=== PATIENT | female | born 1965 | race Hispanic/Latino ===

== ENCOUNTER 2024-06-29 18:43 | Inpatient (IN) | payer OTHER ==
[~2024-06-29] VITALS: Ht 149.9 cm; Wt 69.8 kg
[2024-06-29 18:46] VITALS: TEMP 98.8
[2024-06-29] MEDS: SODIUM CHLORIDE 0.9% 1000ML 1,000 ML IV ONE ×2 (19:50)
[2024-06-29] MEDS: ONDANSETRON HCL INJ 2MG/ML 2ML 2 MG/ML VIAL IV STA (19:50)
[2024-06-29 19:51] LABS: BASOPHILS % 0.3 % (0.0-1.0); EOSINOPHILS # (AUTO) 0.2 (0.0-0.4); EOSINOPHILS % 1.6 % (0.0-6.0); HEMATOCRIT 39.3 % (34.2-44.1); HEMOGLOBIN 13.5 g/dL (12.0-16.0); LYMPHOCYTES # (AUTO) 3.1 (1.0-3.2); LYMPHOCYTES % 26.9 % (18.0-39.1); MEAN CORPUSCULAR HEMOGLOBIN 33.3 pg (28-32); MEAN CORPUSCULAR HGB CONC 34.4 g/dL (31-35); MEAN CORPUSCULAR VOLUME 96.8 fL (81-99); MONOCYTES % 8.3 % (4.4-11.3); NEUTROPHILS # (AUTO) 7.3 (2.1-6.9); NEUTROPHILS % 62.5 % (38.7-80.0); PLATELET COUNT 226 x10e3/uL (140-360); RED BLOOD COUNT 4.06 x10e6/uL (3.6-5.1); RED CELL DISTRIBUTION WIDTH 12.1 % (11.7-14.4); WHITE BLOOD COUNT 11.61 x10e3/uL (4.8-10.8)
[2024-06-29 20:04] LABS: INR 0.86; PROTHROMBIN TIME 12.3 seconds (11.9-14.5)
[2024-06-29 20:05] LABS: PARTIAL THROMBOPLASTIN TIME 28.4 seconds (23.8-35.5)
[2024-06-29 20:08] LABS: CORONAVIRUS COVID-19 AG NEGATIVE (NEGATIVE); INFLUENZA A AG NEGATIVE (NEGATIVE); INFLUENZA B AG NEGATIVE (NEGATIVE)
[2024-06-29 20:14] LABS: ALBUMIN 3.6 g/dL (3.5-5.0); ALBUMIN/GLOBULIN RATIO 0.9 (0.8-2.0); ANION GAP 32.5 mmol/L (8-16); BILIRUBIN,TOTAL 0.4 mg/dL (0.2-1.2); CALCIUM 9.3 mg/dL (8.4-10.2); CREATININE, SERUM 4.04 mg/dL (0.57-1.11); TOTAL PROTEIN 7.6 g/dL (6.5-8.1)
[2024-06-29 20:19] LABS: TROPONIN I 0.044 ng/mL (0-0.300)
[2024-06-29 20:29] LABS: POTASSIUM 2.5 mmol/L (3.5-5.1)
[2024-06-29] MEDS ORDERED: POTASSIUM CHLORIDE 20MEQ/100ML 100 ML IV STA (20:31)
[2024-06-29] MEDS: SODIUM CHLORIDE 0.9% 1000ML 1,000 ML IV SCH (20:46)
[2024-06-29] MEDS: POTASSIUM CHLORIDE 20MEQ/100ML 100 ML IV SCH (20:47)
[2024-06-29 20:58] LABS: CLARITY,URINE CLEAR (CLEAR); COLOR,URINE YELLOW (YELLOW); LEUKOCYTE ESTERASE ,URINE TRACE (NEGATIVE); PH,URINE 5.5 (5 - 7)
[2024-06-29 20:59] LABS: BILIRUBIN,URINE SMALL (NEGATIVE); GLUCOSE, URINE NEGATIVE (NEGATIVE); KETONES,URINE 1+ (NEGATIVE); NITRITE,URINE NEGATIVE (NEGATIVE); PROTEIN,URINE DIPSTICK 1+ (NEGATIVE); URINE UROBILINOGEN 0.2 mg/dL (0.2 - 1)
[2024-06-29 21:00] LABS: WBC,URINE (MAN) >50 /HPF (0-5)
[2024-06-29 21:01] LABS: BACTERIA,URINE MODERATE /HPF; EPITHELIAL CELLS,URINE MANY /LPF
[2024-06-29 21:02] LABS: HYALINE CASTS 0-1 (0-1); MUCUS,URINE FEW
[2024-06-30] VITALS (22 sets, daily range): BP systolic 84–130; BP diastolic 54–85; PULSE 84–105; RESP 6–21; TEMP 98.1–100.6; O2SAT 92–100
[2024-06-30] MEDS: DEXTROSE 50% SYRINGE 50 ML IV STA (00:20)
[2024-06-30] MEDS: ACETAMINOPHEN 1000 MG/100 ML IV STA (00:20)
[2024-06-30] MEDS: SODIUM CHLORIDE 0.9% 1000ML 1,000 ML IV ONE (00:20)
[2024-06-30] MEDS ORDERED: BENZOCAINE 20% SPR 60 ML CAN ONE (00:35)
[2024-06-30] MEDS: METOCLOPRAMIDE HCL 10 MG/2ML VIAL IV SCH (00:53)
[2024-06-30] MEDS: DEXTROSE 5%/0.45% SOD CHL 1,000 ML IV SCH (02:12)
[2024-06-30] MEDS: BENZOCAINE 20% SPR 60 ML CAN MT ONE (02:12)
[2024-06-30] MEDS ORDERED: HYDRALAZINE HCL 20 MG/ML VIAL IV PRN (02:45)
[2024-06-30] MEDS ORDERED: GUAIFENESIN/DEXTROMETHORPHAN LIQD 5 ML UDC PO PRN (02:45)
[2024-06-30] MEDS ORDERED: MELATONIN 3 MG TAB PO PRN (02:45)
[2024-06-30] MEDS ORDERED: DOCUSATE SODIUM 100 MG CAP PO PRN (02:45)
[2024-06-30] MEDS ORDERED: METFORMIN HCL1000 MG PO (03:34)
[2024-06-30] MEDS ORDERED: BUSPIRONE HCL30 MG PO (03:34)
[2024-06-30] MEDS ORDERED: GLIMEPIRIDE2 MG PO (03:34)
[2024-06-30] MEDS ORDERED: BACLOFEN20 MG PO (03:34)
[2024-06-30] MEDS ORDERED: LISINOPRIL2.5 MG PO (03:34)
[2024-06-30] MEDS ORDERED: OMEPRAZOLE40 MG PO (03:34)
[2024-06-30] MEDS ORDERED: LOVASTATIN40 MG PO (03:34)
[2024-06-30] MEDS ORDERED: LEFLUNOMIDE20 MG PO (03:34)
[2024-06-30] MEDS ORDERED: ESCITALOPRAM OX20 MG PO (03:34)
[2024-06-30] MEDS ORDERED: PREDNISONE5 MG PO (03:34)
[2024-06-30] MEDS ORDERED: TOPIRAMATE50 MG PO (03:34)
[2024-06-30] MEDS ORDERED: HYDROCODON-ACE1 EAC9 PO (03:34)
[2024-06-30] MEDS ORDERED: DANTROLENE SODI50 MG PO (03:34)
[2024-06-30] MEDS ORDERED: ROPINIROLE HCL2 MG PO (03:34)
[2024-06-30] MEDS ORDERED: GABAPENTIN600 MG PO (03:34)
[2024-06-30] MEDS ORDERED: XELJANZ XR11 MG PO (03:34)
[2024-06-30] MEDS: INSULIN REGULAR, HUMAN 100 UNIT/1 ML SQ SCH (07:30)
[2024-06-30 07:53] LABS: ANION GAP 19.5 mmol/L (8-16); CALCIUM 8.1 mg/dL (8.4-10.2); CREATININE, SERUM 2.01 mg/dL (0.57-1.11); MAGNESIUM 1.7 MG/DL (1.3-2.1); PHOSPHORUS 3.4 MG/DL (2.3-4.7)
[2024-06-30 07:56] LABS: POTASSIUM 2.5 mmol/L (3.5-5.1)
[2024-06-30] MEDS: DEXTROSE 50% SYRINGE 50 ML IV PRN (07:58)
[2024-06-30] MEDS ORDERED: MAGNESIUM SULFATE 2GM/50ML IV ONE (08:15)
[2024-06-30 08:17] LABS: TROPONIN I 0.035 ng/mL (0-0.300)
[2024-06-30] MEDS: MULTIVITAMINS/MINERALS TAB PO SCH (08:27)
[2024-06-30] MEDS: THIAMINE HCL 100 MG TAB PO SCH (08:27)
[2024-06-30] MEDS: HEPARIN SOD (PORCINE) 5,000 UNIT/ML VIAL SC SCH (09:00)
[2024-06-30] MEDS: MAGNESIUM SULFATE 2GM/50ML 50 ML IV ONE (09:03)
[2024-06-30] MEDS: POTASSIUM CHLORIDE 20MEQ/100ML 100 ML IV ONE ×2 (09:03→12:09)
[2024-06-30] MEDS ORDERED: POTASSIUM PHOSPHATE 20 MM in SODIUM CHLORIDE 0.9% 250ML 250 ML IV ONE (13:00)
[2024-06-30 15:48] LABS: TROPONIN I 0.012 ng/mL (0-0.300)
[2024-06-30] MEDS: ONDANSETRON HCL INJ 2MG/ML 2ML 2 MG/ML VIAL IV PRN (15:57)
[2024-06-30] MEDS: HYDROMORPHONE 1MG/1ML INJ IV PRN (16:38)
[2024-06-30] MEDS: ACETAMINOPHEN 1000 MG/100 ML IV PRN (17:26)
[2024-06-30] MEDS: POTASSIUM PHOSPHATE 20 MM in SODIUM CHLORIDE 0.9% 250ML 250 ML IV ONE (18:02)
[2024-07-01] VITALS (23 sets, daily range): BP systolic 81–111; BP diastolic 56–76; PULSE 88–117; RESP 8–28; TEMP 99.7–101.9; O2SAT 92–100
[2024-07-01 08:01] LABS: BASOPHILS % 0.2 % (0.0-1.0); EOSINOPHILS # (AUTO) 0.2 (0.0-0.4); EOSINOPHILS % 2.9 % (0.0-6.0); HEMOGLOBIN 11.3 g/dL (12.0-16.0); LYMPHOCYTES # (AUTO) 0.5 (1.0-3.2); LYMPHOCYTES % 9.1 % (18.0-39.1); MEAN CORPUSCULAR HEMOGLOBIN 33.3 pg (28-32); MEAN CORPUSCULAR HGB CONC 32.3 g/dL (31-35); MONOCYTES # (AUTO) 0.3 (0.2-0.8); MONOCYTES % 4.6 % (4.4-11.3); NEUTROPHILS # (AUTO) 4.9 (2.1-6.9); NEUTROPHILS % 82.9 % (38.7-80.0); RED BLOOD COUNT 3.39 x10e6/uL (3.6-5.1); RED CELL DISTRIBUTION WIDTH 12.2 % (11.7-14.4); WHITE BLOOD COUNT 5.85 x10e3/uL (4.8-10.8)
[2024-07-01 08:03] LABS: MEAN CORPUSCULAR VOLUME 103.2 fL (81-99)
[2024-07-01 08:04] LABS: PLATELET COUNT 123 x10e3/uL (140-360)
[2024-07-01 08:15] LABS: MAGNESIUM 1.9 MG/DL (1.3-2.1)
[2024-07-01 08:22] LABS: ALBUMIN 2.6 g/dL (3.5-5.0); ALBUMIN/GLOBULIN RATIO 0.9 (0.8-2.0); ANION GAP 14.8 mmol/L (8-16); BILIRUBIN,TOTAL 0.6 mg/dL (0.2-1.2); CALCIUM 7.9 mg/dL (8.4-10.2); CREATININE, SERUM 0.99 mg/dL (0.57-1.11); TOTAL PROTEIN 5.5 g/dL (6.5-8.1)
[2024-07-01 08:26] LABS: POTASSIUM 2.8 mmol/L (3.5-5.1)
[2024-07-01] MEDS: ACETAMINOPHEN 1000 MG/100 ML IV PRN (08:59)
[2024-07-01 09:04] LABS: THYROID STIMULATING HORMONE 0.188 uIU/mL (0.350-4.940)
[2024-07-01] MEDS: POTASSIUM CHLORIDE 20MEQ/100ML 100 ML IV PRN (14:45)
[2024-07-01] MEDS: DICLOFENAC SOD 1% GEL 100 GM TUBE TP PRN (20:33)
[2024-07-01] MEDS ORDERED: DEXTROSE 50% SYRINGE 50 ML IV PRN (23:00)
[2024-07-01] MEDS: KETOROLAC TROMETHAMINE 30 MG/ML VIAL IV PRN (23:40)
[2024-07-01] MEDS: LORAZEPAM INJ 2 MG/ML VIAL IV PRN (23:41)
[2024-07-01] MEDS: Vancomycin IV 1 GM in SODIUM CHLORIDE 0.9% 250ML 250 ML IV SCH (23:53)
[2024-07-02] VITALS (49 sets, daily range): BP systolic 59–120; BP diastolic 39–86; PULSE 83–116; RESP 11–29; TEMP 98.9–101.8; O2SAT 92–100
[2024-07-02] MEDS: INSULIN LISPRO 100 UNIT/1 ML 3ML VIAL SQ SCH
[2024-07-02] MEDS: D5NS/KCL 20MEQ 1,000 ML IV SCH (00:52)
[2024-07-02] MEDS: POTASSIUM PHOSPHATE 15 MM in SODIUM CHLORIDE 0.9% 250ML 250 ML IV ONE (00:53)
[2024-07-02] MEDS: SODIUM CHLORIDE 0.9% 500ML 500 ML IV ONE ×2 (05:05→06:18)
[2024-07-02 07:00] LABS: BASOPHILS % 0.1 % (0.0-1.0); EOSINOPHILS # (AUTO) 0.3 (0.0-0.4); EOSINOPHILS % 3.8 % (0.0-6.0); HEMATOCRIT 28.7 % (34.2-44.1); HEMOGLOBIN 9.5 g/dL (12.0-16.0); LYMPHOCYTES # (AUTO) 0.2 (1.0-3.2); LYMPHOCYTES % 2.9 % (18.0-39.1); MEAN CORPUSCULAR HEMOGLOBIN 33.6 pg (28-32); MEAN CORPUSCULAR HGB CONC 33.1 g/dL (31-35); MEAN CORPUSCULAR VOLUME 101.4 fL (81-99); MONOCYTES # (AUTO) 0.2 (0.2-0.8); MONOCYTES % 2.3 % (4.4-11.3); NEUTROPHILS # (AUTO) 7.2 (2.1-6.9); NEUTROPHILS % 90.3 % (38.7-80.0); PLATELET COUNT 69 x10e3/uL (140-360); RED BLOOD COUNT 2.83 x10e6/uL (3.6-5.1); WHITE BLOOD COUNT 7.98 x10e3/uL (4.8-10.8)
[2024-07-02 07:23] LABS: ALBUMIN 2.1 g/dL (3.5-5.0); ANION GAP 14.6 mmol/L (8-16); BILIRUBIN,TOTAL 0.6 mg/dL (0.2-1.2); CALCIUM 7.4 mg/dL (8.4-10.2); CREATININE, SERUM 0.96 mg/dL (0.57-1.11); TOTAL PROTEIN 4.3 g/dL (6.5-8.1)
[2024-07-02 07:29] LABS: POTASSIUM 2.6 mmol/L (3.5-5.1)
[2024-07-02] MEDS: THIAMINE HCL INJ 100 MG/ML 2ML VIAL IV SCH (08:42)
[2024-07-02] MEDS: LIDOCAINE 4% PATCH TP SCH (08:56)
[2024-07-02] MEDS: LACTATED RINGER'S 1,000 ML INJ ONE ×2 (08:56→13:04)
[2024-07-02] MEDS: POTASSIUM CHLORIDE 20MEQ/100ML 100 ML IV SCH ×2 (10:53→16:34)
[2024-07-02] MEDS: NOREPINEPHRINE 8 MG/D5W 250 ML 250 ML IV SCH (12:02)
[2024-07-02] MEDS: KETOROLAC TROMETHAMINE 30 MG/ML VIAL IM ONE (12:50)
[2024-07-02] MEDS: MEROPENEM 1 GM in SODIUM CHLORIDE 0.9% 100 ML IV SCH (13:18)
[2024-07-02] MEDS ORDERED: AMIODARONE HCL 200 MG TAB PO SCH (17:00)
[2024-07-03] VITALS (9 sets, daily range): BP systolic 90–127; BP diastolic 63–87; PULSE 75–99; RESP 13–21; TEMP 98.6–99; O2SAT 97–100
[2024-07-03 06:53] LABS: BASOPHILS % 0.2 % (0.0-1.0); EOSINOPHILS # (AUTO) 0.4 (0.0-0.4); EOSINOPHILS % 8.4 % (0.0-6.0); HEMATOCRIT 29.8 % (34.2-44.1); HEMOGLOBIN 9.6 g/dL (12.0-16.0); LYMPHOCYTES # (AUTO) 0.6 (1.0-3.2); LYMPHOCYTES % 12.8 % (18.0-39.1); MEAN CORPUSCULAR HEMOGLOBIN 33.7 pg (28-32); MEAN CORPUSCULAR HGB CONC 32.2 g/dL (31-35); MEAN CORPUSCULAR VOLUME 104.6 fL (81-99); MONOCYTES # (AUTO) 0.4 (0.2-0.8); MONOCYTES % 7.9 % (4.4-11.3); NEUTROPHILS # (AUTO) 3.4 (2.1-6.9); NEUTROPHILS % 70.3 % (38.7-80.0); PLATELET COUNT 73 x10e3/uL (140-360); RED BLOOD COUNT 2.85 x10e6/uL (3.6-5.1); RED CELL DISTRIBUTION WIDTH 12.2 % (11.7-14.4); WHITE BLOOD COUNT 4.78 x10e3/uL (4.8-10.8)
[2024-07-03 07:23] LABS: ALBUMIN 2.1 g/dL (3.5-5.0); BILIRUBIN,TOTAL 0.6 mg/dL (0.2-1.2); CALCIUM 7.9 mg/dL (8.4-10.2); CREATININE, SERUM 0.86 mg/dL (0.57-1.11); TOTAL PROTEIN 4.3 g/dL (6.5-8.1)
[2024-07-04 15:12] LABS: RHEUMATOID FACTOR 10.3 IU/mL (<14.0)
[2024-07-06 13:12] LABS: HENSELAE IGG SCREEN Negative titer (Neg:<1:320); HENSELAE IGM SCREEN Negative titer (Neg:<1:100)
[2024-07-07 09:18] LABS: TOXOPLASMA IGM ANTIBODY <3.0
== END 2024-07-03 07:45 | disposition left against medical advice (07) | DRG 871 ==
LOC: ER 19:38 → ERHOLD 06-30 00:24 → ICU 06-30 03:02
PROVIDERS: ADMIT Internal Medicine; ATTEND Internal Medicine
PROC: 3E0333Z Introduction of Anti-inflammatory into Peripheral Vein, Percutaneous Approach (ICD-10-PCS; 2024-06-30)
PROC: 02HV33Z Insertion of Infusion Device into Superior Vena Cava, Percutaneous Approach (ICD-10-PCS; principal; 2024-07-01)
PROC: 3E033XZ Introduction of Vasopressor into Peripheral Vein, Percutaneous Approach (ICD-10-PCS; 2024-07-02)
DX: A41.51 Sepsis due to Escherichia coli [E. coli] (principal); R57.1 Hypovolemic shock; R65.21 Severe sepsis with septic shock; K31.1 Adult hypertrophic pyloric stenosis; E87.20 Acidosis, unspecified; N17.9 Acute kidney failure, unspecified; N39.0 Urinary tract infection, site not specified; E87.3 Alkalosis; E83.39 Other disorders of phosphorus metabolism; E11.649 Type 2 diabetes mellitus with hypoglycemia without coma; E11.22 Type 2 diabetes mellitus with diabetic chronic kidney disease; I12.9 Hypertensive chronic kidney disease with stage 1 through stage 4 chronic kidney disease, or unspecified chronic kidney disease; N18.9 Chronic kidney disease, unspecified; E86.0 Dehydration; E83.42 Hypomagnesemia; E87.6 Hypokalemia; E87.8 Other disorders of electrolyte and fluid balance, not elsewhere classified; Z11.52 Encounter for screening for COVID-19; R11.2 Nausea with vomiting, unspecified; R14.0 Abdominal distension (gaseous); R31.29 Other microscopic hematuria; K31.89 Other diseases of stomach and duodenum; T38.3X5A Adverse effect of insulin and oral hypoglycemic [antidiabetic] drugs, initial encounter; R33.9 Retention of urine, unspecified; K21.9 Gastro-esophageal reflux disease without esophagitis; M06.9 Rheumatoid arthritis, unspecified; G89.4 Chronic pain syndrome; T38.3X6A Underdosing of insulin and oral hypoglycemic [antidiabetic] drugs, initial encounter; Z91.120 Patient's intentional underdosing of medication regimen due to financial hardship; Z53.29 Procedure and treatment not carried out because of patient's decision for other reasons; Z79.84 Long term (current) use of oral hypoglycemic drugs; Z88.1 Allergy status to other antibiotic agents; Z88.2 Allergy status to sulfonamides; Z87.891 Personal history of nicotine dependence
CPT/HCPCS: 36415; 36569; 51700; 71045; 74018; 74176; 80048; 80053; 81001; 82550; 82948; 83036; 83605; 83690; 83735; 84100; 84443; 84484; 85025; 85610; 85651; 85730; 86039; 86140; 86200; 86431; 86611; 86777; 86778; 87040; 87086; 93005; 94799; 99252; 99284; J0696; J1171; J1644; J1885; J2060; J2185; J2405; J2470; J2543; J2765; J3411; J3475; J3480; J7030; J7040; J7050; J7799